=== PATIENT | female | born 1965 | race Caucasian/White ===

== ENCOUNTER 2016-12-09 11:48 | Day surgery (SDC) | payer OTHER ==
[~2016-12-09] VITALS: Ht 167.6 cm; Wt 70.0 kg
[~2016-12-09 11:48] MED LIST: FEXO180T85 PO; FLUT9.9S NS; IBUP-1827 PO; Sodium Chloride LOK Flush 10 mL Syringe IV PRN; fentaNYL-PF 50 mCg/mL 2 mL Inj IVPUSH PRN
[2016-12-09 12:16] VITALS: BP 135/73; PULSE 69; RESP 16; O2SAT 95
[2016-12-09] MEDS: 0.9% Sodium Chloride 1,000 ML IV SCH ×2 (12:17→12:49)
[2016-12-09 12:59] VITALS: BP 132/70; PULSE 58; RESP 16; O2SAT 97
[2016-12-09 13:09] VITALS: BP 131/72; PULSE 63; RESP 16; O2SAT 98
[2016-12-09 13:19] VITALS: BP 134/65; PULSE 69; RESP 16; O2SAT 97
--- NOTE | 2016-12-10 03:05 | ENDO ---
[address] [address] ENDOSCOPY PROCEDURE PATIENT: JENSEN LANDEROS : 1965 MR#: [id number] ADMIT: 12/09/2016 JOB ID: [id number] DATE OF SERVICE: PROCEDURE PERFORMED: Colonoscopy. INDICATION: Screening. ANESTHESIA CLASSIFICATION: Patient's ASA classification is 2. Mallampati score is 2. MEDICATIONS: Versed 5 mg, fentanyl 100 mcg. INSTRUMENT USED: PCF-H180 AL. PREP QUALITY: Good. PROCEDURE DETAILS: After informed consent was obtained, the patient was brought to the GI suite, where she was placed on oxygen via nasal cannula and monitored with continuous pulse oximeter, telemetry, and blood pressure monitoring. A time-out was performed. Then, she was placed in the left lateral decubitus position and medications were administered for sedation. Digital rectal exam was performed, which was unremarkable. The colonoscope was then inserted into the rectum and advanced under direct visualization to the cecum, which was identified by the presence of the ileocecal valve and appendiceal orifice. Once the cecum was reached, the colonoscope was withdrawn back in the rectum, and mucosa and lumen were examined. In the rectum, retroflexion was performed. Following retroflexion, remaining air in the rectum was suctioned, and procedure was completed. FINDINGS: Normal exam from rectum to cecum. IMPRESSION: Normal colonoscopy. RECOMMENDATIONS: Repeat colonoscopy in 10 years, sooner if symptoms should dictate. COMPLICATIONS: None. ESTIMATED BLOOD LOSS: Zero. cc: LORAINE Howell cc: Unknown, Unknown
== END 2016-12-09 23:59 | disposition home or self-care (01) ==
LOC: END 11:48
PROVIDERS: ATTEND Internal Medicine Gastroenterology
DX: Z12.11 Encounter for screening for malignant neoplasm of colon (principal); Z80.0 Family history of malignant neoplasm of digestive organs; M54.5 Low back pain
CPT/HCPCS: G0105; G0500; J2250; J3010; J7030